=== PATIENT | male | born 1955 | race Two or more races ===

== ENCOUNTER → 2016-11-05 | Outpatient (REF) | payer MEDICARE | LOC: M SMT 13:03 | PROVIDERS: ATTEND Nurse Practitioner Women's Health | DX: R97.20 Elevated prostate specific antigen [PSA] (principal); Z79.899 Other long term (current) drug therapy | CPT/HCPCS: 81001; 87086; G0463 ==

== ENCOUNTER → 2017-06-08 | Outpatient (CLI) | payer MEDICARE, OTHER | LOC: M WUC 11:07 | DX: M19.011 Primary osteoarthritis, right shoulder (principal); M75.31 Calcific tendinitis of right shoulder | CPT/HCPCS: 73030 ==

== ENCOUNTER → 2018-02-15 | Outpatient (REF) | payer MEDICARE ==
[2018-02-15 19:12] LABS: APPEARANCE, URINE CLEAR (CLEAR); BACTERIA, URINE AUTO NEGATIVE (NEGATIVE); BILIRUBIN, URINE AUTO NEGATIVE (NEGATIVE); BLOOD, URINE BLOOD NEGATIVE (NEGATIVE); COLOR, URINE YELLOW (YELLOW); GLUCOSE, URINE (UA) AUTO NEGATIVE (NEGATIVE); KETONE, URINE AUTO NEGATIVE (NEGATIVE); LEUKOCYTE ESTERASE, URINE AUTO NEGATIVE (NEGATIVE); MUCUS, URINE SMALL (NEGATIVE); NITRITE, URINE AUTO NEGATIVE (NEGATIVE); PROTEIN, URINE AUTO NEGATIVE (NEGATIVE); RBC, URINE AUTO 0 /HPF (0-3); SPECIFIC GRAVITY URINE AUTO 1.028 (1.002-1.035); SQUAMOUS EPITHELIAL CELL UR AU 0 /HPF (0-6); UROBILINOGEN, URINE AUTO 0.2 mg/dL (0.0-2.0); WBC, URINE AUTO 0 /HPF (0-3)
== END ==
LOC: M SMT 16:52
PROVIDERS: ATTEND Nurse Practitioner Women's Health
DX: R97.20 Elevated prostate specific antigen [PSA] (principal)
CPT/HCPCS: 81001; 87086; G0463

== ENCOUNTER → 2018-02-18 | Outpatient (REF) | payer MEDICARE ==
[2018-02-21 00:06] LABS: CODEINE, URINE Negative (Cutoff=100); CREATININE, URINE 101.4 mg/dL (20.0-300.0); HYDROCODONE CONFIRM, URINE 883 ng/mL (Cutoff=100); HYDROCODONE, URINE Positive (.); HYDROMORPHONE CONFIRM, URINE 215 ng/mL (Cutoff=100); HYDROMORPHONE, URINE Positive (.); MORPHINE, URINE Negative (Cutoff=100); OPIATES, URINE Positive ng/mL (Cutoff=300)
== END ==
LOC: M SFHCPLAZ 09:15
PROVIDERS: ATTEND Physician Assistant
DX: F11.90 Opioid use, unspecified, uncomplicated (principal)

== ENCOUNTER → 2018-04-06 | Outpatient (CLI) | payer MEDICARE ==
--- NOTE | 2018-04-06 12:40 | REP ---
Prostate sonography: History: Elevated PSA Sonographic findings: Trans rectal prostate sonography demonstrates unremarkable seminal vesicles. Prostate gland is heterogeneously enlarged with calcifications and cystic changes noted. Glandular dimensions are measured at 3.6 x 2.7 x 4.3 cm with a calculated glandular volume of 21.8 ml. There is a 0.6 cm nodule in the right side of the gland. Transrectal sonographic guidance provided to Dr. Larsen who performed trans rectal ultrasound guided needle biopsy procedure . Electronically Signed by Thad Roldan MD 04/06/2018 12:32 P
== END ==
LOC: M SMT PRO 08:37
PROVIDERS: ATTEND Urology
DX: C61 Malignant neoplasm of prostate (principal)
CPT/HCPCS: 55700; 76872; 76942; G0416

== ENCOUNTER → 2018-04-13 | Outpatient (REF) | payer MEDICARE ==
[2018-04-13 17:02] LABS: BLOOD UREA NITROGEN 13 MG/DL (7-18); CALCIUM LEVEL 8.1 MG/DL (8.8-10.2); CARBON DIOXIDE LEVEL 31 MEQ/L (21-32); CHLORIDE LEVEL 107 MEQ/L (98-107); CREATININE FOR GFR 0.98 MG/DL (0.70-1.30); GLOMERULAR FILTRATION RATE > 60.0 (>49); GLUCOSE, FASTING 93 MG/DL (70-100); POTASSIUM SERUM 4.3 MEQ/L (3.5-5.1); SODIUM LEVEL 143 MEQ/L (136-145)
== END ==
LOC: M LABNEURO 14:01
PROVIDERS: ATTEND Urology
DX: C61 Malignant neoplasm of prostate (principal)
CPT/HCPCS: 36415; 80048; G0463

== ENCOUNTER → 2018-04-19 | Outpatient (CLI) | payer MEDICARE ==
[~2018-04-19] MED LIST: ISOVUE-370 76% 100ML VIAL (Q9967) As Ordered ONE
--- NOTE | 2018-04-19 09:45 | REP ---
CT of the abdomen and pelvis with IV contrast, without bowel contrast: Comparison is 03/10/2014. Within the visualized lower lung reyes. There is calcified pleural plaque in the lateral segment of the right lower lobe. Lung reyes otherwise clear. The hepatic parenchyma is homogeneous except for a small hepatic cyst in the left lobe lateral segment of small hepatic cysts. The left lobe medial segment of the small hepatic cyst in the right lobe. These are unchanged. The gallbladder, pancreas and spleen are normal size and unremarkable. The adrenals are unremarkable. The kidneys are unremarkable. The previous right hydronephrosis is no longer present. The previous right ureteral calculus at the UPJ is no longer present. There is no perinephric stranding on the right on the left. The abdominal aorta is unremarkable. There is no retroperitoneal adenopathy. There is no mesenteric adenopathy. There is no ascites. There is no bowel distension or obstruction. There is sigmoid colon diverticulosis without diverticulitis. This is unchanged. Pelvis: There is no adenopathy or ascites. The appendix is unremarkable. The bladder is unremarkable. Prostate is mildly enlarged. There are no lytic, blastic or destructive changes in the lumbar spine, sacrum or pelvis. Impression: There is no adenopathy or ascites. There are no lytic, blastic or destructive skeletal changes. The prostate is mildly enlarged. The previous right ureteral calculus. There is right hydronephrosis have resolved. There are small hepatic cysts, unchanged. There is focal calcified pleural plaque in the lateral segment of the right lower lobe. Electronically Signed by Miguel Grullon MD 04/19/2018 09:37 A
== END ==
LOC: M RAD 08:22
PROVIDERS: ATTEND Urology
DX: C61 Malignant neoplasm of prostate (principal); K76.89 Other specified diseases of liver
CPT/HCPCS: 74177; Q9967

== ENCOUNTER → 2018-04-22 | Outpatient (CLI) | payer MEDICARE ==
--- NOTE | 2018-04-22 17:42 | REP ---
WHOLE-BODY BONE SCAN: 04/22/2018. Clinical history. Prostate carcinoma, for staging. Comparison CT abdomen and pelvis 04/19/2018, MRI lumbar 12/27/2013. Technique: The patient received 21.9 mCi technetium 99m MDP via IV. Whole body delayed images with anterior and posterior obliques in delayed fashion for the chest, pelvis with lateral head, neck, knees and feet. Findings: There is symmetric increased tracer uptake in the AC joint, glenohumeral joints at the hips, knees and ankles consistent with degenerative disc change. SI joints also show mild symmetric uptake. I see no abnormal uptake in the vertebral bodies. Ribs intact. Long bones show symmetric appearance without focal abnormal uptake. There is some mild symmetric increased uptake along the peripheral margin of the proximal one half of each femoral shaft and proximal metaphysis of the tibia laterally on both sides. There is also increased uptake in the left great toe and the posterior elements of the left mid cervical region. Paranasal sinus uptake is noted consistent with chronic sinus disease. There is activity in the kidneys and bladder. No abnormal spine activity in the vertebral bodies. Some increased uptake at the posterior rib articular junctions Impression: 1. Polyarthritis noted with uptake in symmetric fashion about multiple joints, their typical distribution. There is also some uptake about the great toe, paranasal sinuses, posterior left neck without other spine uptake, 2. Some mild symmetric increased uptake peripherally in the proximal lateral cortex of the femurs and proximal metaphysis laterally in the tibia may be a mild stress reaction. This is not a metastatic pattern. I do not see any compelling scintigraphic findings to suggest metastatic disease. Electronically Signed by Deshawn Love MD 04/22/2018 07:58 P
== END ==
LOC: M RAD 10:24
PROVIDERS: ATTEND Urology
DX: C61 Malignant neoplasm of prostate (principal); M15.0 Primary generalized (osteo)arthritis
CPT/HCPCS: 78306; A9503

== ENCOUNTER → 2018-05-04 | Outpatient (CLI) | payer MEDICARE ==
--- NOTE | 2018-05-04 14:44 | REP ---
TRANSRECTAL ULTRASOUND GUIDANCE FOR FIDUCIARY MARKER PLACEMENT: Transrectal ultrasound guidance was provided for Dr. Larsen who placed three fiduciary markers in the region of the prostate. Electronically Signed by Miguel Cameron MD 05/05/2018 10:56 A
== END ==
LOC: M SMT 10:16
PROVIDERS: ATTEND Urology
DX: C61 Malignant neoplasm of prostate (principal)
CPT/HCPCS: 55876; 76872; A4648

== ENCOUNTER → 2018-05-06 | Outpatient (CLI) | payer MEDICARE ==
--- NOTE | 2018-05-10 11:39 | RADONC ---
RADIATION ONCOLOGY CONSULTATION NOTE DATE: 05/06/2018 CHART NUMBER: [id number] DIAGNOSIS: Prostate cancer. STAGE: Stage II B, T2c, N0, M0, PSA 18.79, Rhett score 7 (3-4), grade group 2. ECOG PERFORMANCE STATUS: 0 CONSULTATION NOTE: Mr. Anthony is a very pleasant, 62-year-old white male with the diagnosis of what appears to be a stage II B, [id number], moderate to poorly differentiated [place] score 7 (3-4) adenocarcinoma prostate with a PSA score of 18.79, who is presenting to us today for discussion of external beam radiation therapy with IMRT/IGRT as a therapeutic option. He has already begun hormonal therapy and has had his fiducial markers placed. HISTORY OF PRESENT ILLNESS: The patient was in his usual state of health until he was found to have a PSA level of 18.79 on 12/25/2017. On 04/06/2018, the patient underwent prostatic needle biopsy and pathology revealed a Rhett score 7 (3-4) adenocarcinoma of the prostate involving both the left and right sides. The patient has discussed his options with Dr. Larsen and has decided on IMRT external beam radiation therapy. He has had his fiducial markers placed and initiated hormonal therapy. He is now presenting for discussion of the external beam portion of his treatment. PAST MEDICAL HISTORY: The patient's past medical history is positive for hypertension and arthritis. He has some acid reflux and back pain. His reflux has called him Sen's esophagus. ALLERGIES: The patient is allergic to ASPIRIN. SOCIAL HISTORY: The patient had smoked one pack of cigarettes per day for approximately 20 years. He quit in 2012. He does not abuse alcohol. FAMILY HISTORY: The patient's family history is positive for a sister with breast cancer. REVIEW OF SYSTEMS: The patient's review of systems is positive for some occasional headaches but is otherwise noncontributory. Denies nausea, vomiting, fevers, chills, night sweats, diplopia, anxiety or depression, anorexia, weight loss, visual disturbances, chest pain, urinary or bowel difficulties, bone pain, or neurological problems. PHYSICAL EXAMINATION: The patient is a well-developed, well-nourished male in no acute distress. HEENT exam is normocephalic, atraumatic. Extraocular movements are intact. There is no palpable cervical, supraclavicular, infraclavicular, axillary, or inguinal lymphadenopathy present. Lungs are clear to auscultation and percussion. Heart has a regular rate and rhythm. Abdomen is benign with no hepatosplenomegaly, masses, or tenderness. Rectal examination reveals a normal anal sphincter tone. His prostate is smooth with no evidence of nodularity. Skeletal examination reveals no tenderness to pressure or percussion of the bony skeleton. Extremities reveal no clubbing, cyanosis, or edema. Neurologic exam is grossly intact, as is the remainder of the physical examination. MEDICAL NECESSITY: IMRT/IGRT is clinically indicated for the highly conformal dose planning required. The target volume is in close proximity to critical structures, such as the rectum, bladder, small bowel, and femoral heads. The volume of interest must be covered with narrow margins to adequately protect immediately adjacent structures. The plan requires interpretation of complex testing such as CT localization. As noted above, special planning (IMRT) and localizing (IGRT) is required and essential to maximally protect sensitive normal tissue structures which cannot be accomplished using conventional 3-dimensional planning. ASSESSMENT: Clearly the patient is a candidate for external beam radiation therapy and I have so informed him. I have discussed with the patient in detail the potential benefits as well as possible acute and chronic sequelae of external beam radiation therapy. We discussed logistics of treatment planning, simulation subsequent fractionated daily radiation treatments. I have scheduled the patient for initiation of treatment planning and radiation treatments will follow. I did discuss with the patient the alternatives such as surgery. We discussed the potential benefits as well as drawbacks of each type of treatment modality. The patient clearly has already decided on external beam radiation therapy as his treatment modality of choice. cc: MD Sudeep Mock PA
== END ==
LOC: M ONCR 12:54
PROVIDERS: ATTEND Radiology Radiation Oncology
DX: C61 Malignant neoplasm of prostate (principal); Z88.6 Allergy status to analgesic agent

== ENCOUNTER → 2018-07-09 | Outpatient (RCR) | payer MEDICARE ==
[2018-06-16 09:46] LABS: HEMOGLOBIN 14.1 g/dl (13.5-17.5); LYMPH % 32.3 % (24.0-44.0); MEAN CORPUSCULAR HEMOGLOBIN 28.9 pg (27.0-33.0); MEAN CORPUSCULAR HGB CONC 32.8 g/dl (32.0-36.5); MEAN CORPUSCULAR VOLUME 88.1 fl (80.0-96.0); NEUTROPHILS # 3.2 10^3/uL (1.8-7.7); NEUTROPHILS % 56.6 % (36.0-66.0); RED BLOOD COUNT 4.88 10^6/uL (4.30-6.10); WHITE BLOOD COUNT 5.6 10^3/uL (4.0-10.0)
--- NOTE | 2018-06-16 16:18 | RADONC ---
RADIATION ONCOLOGY SIMULATION NOTE DATE: 06/16/2018 CHART NUMBER: [id number] SIMULATION NOTE: Mr. Anthony was taken to the CT scan for CT simulation of his prostate field. CT was accomplished without difficulty or discomfort. Radiation treatment planning is underway and radiation treatments will begin subsequently. An immobilization device was created and will be used throughout the course of treatment. It was created without difficulty or discomfort. I was physically present throughout the course of CT simulation.
--- NOTE | 2018-06-28 17:17 | RADONC ---
RADIATION ONCOLOGY PROGRESS NOTE DATE: 06/28/2018 CHART NUMBER: [id number] Mr. Anthony is presently a dose of 720 cGy to his prostate and is tolerating treatments quite well at this point with no complaints related to his radiation therapy. He is having no urinary or bowel difficulties. No bone pain. The patient's review of systems is noncontributory. He denies nausea, vomiting, fevers, chills, night sweats, diplopia, headaches, anxiety or depression, anorexia, weight loss, visual disturbances, chest pain, urinary or bowel difficulties, bone pain, or neurological problems. PHYSICAL EXAMINATION: The patient's skin is in good condition with no evidence of radiation change present. There is no moist or dry desquamation. The remainder of his physical exam remains unchanged. Mr. Anthony is tolerating treatments quite well and radiation will continue as scheduled.
--- NOTE | 2018-07-06 09:16 | RADONC ---
RADIATION ONCOLOGY PROGRESS NOTE DATE: 07/06/2018 CHART NUMBER: [id number] PROGRESS NOTE: Mr. Anthony is presently at a dose of 1620 cGy to his prostate and is tolerating treatments quite well at this point with no complaints related to his radiation therapy. He is having no urinary or bowel difficulties. No bone pain. REVIEW OF SYSTEMS: The patient's review of systems is noncontributory. Denies nausea, vomiting, fevers, chills, night sweats, diplopia, headaches, anxiety or depression, anorexia, weight loss, visual disturbances, chest pain, urinary or bowel difficulties, bone pain, or neurological problems. PHYSICAL EXAMINATION: The patient's skin is in good condition with no evidence of moist or dry desquamation. The remainder of his physical exam remains unchanged. Mr. Anthony is tolerating treatments quite well and radiation will continue as scheduled.
== END ==
LOC: M ONCR 06-16 09:02
PROVIDERS: ATTEND Radiology Radiation Oncology
DX: C61 Malignant neoplasm of prostate (principal)

== ENCOUNTER 2018-08-06 08:32 | Outpatient (RCR) | payer MEDICARE ==
--- NOTE | 2018-07-12 12:28 | RADONC ---
RADIATION ONCOLOGY PROGRESS NOTE DATE: 07/12/2018 CHART NUMBER: [id number] PROGRESS NOTE: Mr. Anthony is a gentleman who has a diagnosis of adenocarcinoma of the prostate and is currently receiving local regional radiotherapy for local regional control. His current dose to date is 2340 centigray of an anticipated 7920 centigray. REVIEW OF SYSTEMS: He denies any nausea, vomiting, diarrhea, dysuria, hematuria or blood per rectum. His energy level is such that he is able to maintain most of his day-to-day activities without any alteration of his lifestyle. Skin irritation is not an issue for him. In addition, he denies any diplopia, headaches, anxiety, depression, anorexia, weight loss, visual disturbances, chest pain, urinary or bowel difficulties, bone pain or neurologic problems. EXAMINATION FINDINGS: The skin within the irradiated volume shows no evidence of erythema and certainly no focal desquamation. The remainder of the physical examination remains unchanged. IMPRESSION: Tolerating therapy well. PLAN: Treatments to continue
--- NOTE | 2018-07-19 14:31 | RADONC ---
RADIATION ONCOLOGY PROGRESS NOTE DATE: 07/19/2018 CHART NUMBER: [id number] Mr. Anthony is presently at a dose of 3240 cGy to his prostate and is tolerating treatments quite well at this point with no complaints related to his radiation therapy. He is having urinary or bowel difficulties, and no bone pain. REVIEW OF SYSTEMS: The patient's review of systems is noncontributory. He denies nausea, vomiting, fevers, chills, night sweats, diplopia, headaches, anxiety or depression, anorexia, weight loss, visual disturbances, chest pain, urinary or bowel difficulties, bone pain or neurological problems. PHYSICAL EXAMINATION: The patient's skin is in good condition with no evidence of moist or dry desquamation. The remainder of his physical exam remains unchanged. Mr. Anthony is tolerating treatments quite well and radiation will continue as scheduled.
--- NOTE | 2018-07-27 07:02 | RADONC ---
RADIATION ONCOLOGY PROGRESS NOTE DATE: 07/26/2018 CHART NUMBER: [id number] Mr. Anthony is presently at a dose of 4140 cGy to his prostate and is tolerating treatments quite well at this point with no complaints related to his radiation therapy. He is having no urinary or bowel difficulties and no bone pain. The patient's review of systems is noncontributory. He denies nausea, vomiting, fevers, chills, night sweats, diplopia, headaches, anxiety or depression, anorexia, weight loss, visual disturbances, chest pain, urinary or bowel difficulties, bone pain, or neurological problems. PHYSICAL EXAMINATION: The patient's skin is in good condition with no evidence of radiation change present. There is no moist or dry desquamation. The remainder of his physical exam remains unchanged. Mr. Anthony is tolerating treatments quite well and radiation will continue as scheduled.
--- NOTE | 2018-08-03 09:32 | RADONC ---
RADIATION ONCOLOGY PROGRESS NOTE: DATE: 08/02/2018 CHART NUMBER: [id number]. Mr. Anthony with a diagnosis of adenocarcinoma of the prostate is currently receiving local regional radiotherapy and he has achieved a dose thus far of 5040 cGy of an anticipated 7920 cGy. Treatments are going well and he has no specific complaints referable to his disease or to his treatments. REVIEW OF SYSTEMS: He specifically denies any nausea, vomiting, diarrhea, dysuria, hematuria or blood per rectum. His energy level is such that he is able to maintain most of his day-to-day activities without any alteration of his lifestyle. Skin irritation is denied. The remainder of the review of systems is unchanged. PHYSICAL EXAMINATION: He is a well-developed male in no acute distress. Lymphatics: No palpable peripheral lymphadenopathy is appreciated. The remainder of the physical examination is unchanged. IMPRESSION: Tolerating therapy well currently at a dose of 5040 cGy of an anticipated 7920 cGy. PLAN: Treatments to continue.
== END 2018-08-08 ==
LOC: M ONCR 08:32
PROVIDERS: ATTEND Radiology Radiation Oncology
DX: C61 Malignant neoplasm of prostate (principal)

== ENCOUNTER 2018-08-26 08:34 | Outpatient (RCR) | payer MEDICARE ==
--- NOTE | 2018-08-09 10:11 | RADONC ---
RADIATION ONCOLOGY PROGRESS NOTE DATE OF SERVICE: 08/09/2018. CHART NUMBER: [id number] Mr. Anthony, with a diagnosis of adenocarcinoma of prostate, is currently at a dose of half 5940 cGy of an anticipated 7920 cGy. He seems to be tolerating his therapy well with no complaints. REVIEW OF SYSTEMS: He specifically denies any nausea, vomiting, diarrhea, dysuria, hematuria or blood per rectum. His energy level is such that he is able to maintain most day-to-day activities without any alteration of his lifestyle. He does not complain of any skin irritation. The remainder of the review of systems is unchanged. PHYSICAL EXAMINATION The patient is a well-nourished, well-developed male. The skin within the irradiated volume shows neither erythema nor desquamation. There is no palpable peripheral lymphadenopathy. The remainder of the physical examination is unchanged. IMPRESSION: Tolerating therapy well. PLAN: Treatments to continue. MTDD
--- NOTE | 2018-08-16 10:05 | RADONC ---
RADIATION ONCOLOGY PROGRESS NOTE DATE: 08/16/2018 CHART NUMBER: [id number] Mr. Anthony is presently at a dose of 6480 cGy to his prostate and is tolerating treatments quite well at this point with no complaints related to his radiation therapy. He is having no urinary or bowel difficulties and no bone pain. The patient's review of systems is noncontributory. He denies nausea, vomiting, fevers, chills, night sweats, diplopia, headaches, anxiety or depression, anorexia, weight loss, visual disturbances, chest pain, urinary or bowel difficulties, bone pain, or neurological problems. PHYSICAL EXAMINATION: The patient's skin is in good condition with no evidence of radiation change present. There is no moist or dry desquamation. The remainder of his physical exam remains unchanged. Mr. Anthony is tolerating treatments quite well, and radiation will continue as scheduled.
--- NOTE | 2018-08-23 14:20 | RADONC ---
RADIATION ONCOLOGY PROGRESS NOTE DATE OF SERVICE: 08/23/2018 CHART NUMBER: [id number]. PROGRESS NOTE: Mr. Anthony is presently at a dose of 7380 cGy to his prostate and is tolerating treatments quite well at this point with no complaints related to his radiation therapy. He is having no significant urinary or bowel difficulties. No bone pain. REVIEW OF SYSTEMS: The patient's review of systems is noncontributory. He denies nausea, vomiting, fevers, chills, night sweats, diplopia, headaches, anxiety or depression, anorexia, weight loss, visual disturbances, chest pain, urinary or bowel difficulties, bone pain, or neurological problems. PHYSICAL EXAMINATION: The patient's skin is in good condition with no evidence of moist or dry desquamation. The remainder of his physical exam remains unchanged. Mr. Anthony is tolerating treatments quite well, and radiation will continue as scheduled.
--- NOTE | 2018-08-30 09:15 | RADONC ---
RADIATION ONCOLOGY TREATMENT SUMMARY DATE: 08/26/2018 CHART #: [id number] DIAGNOSIS: Prostate cancer. STAGE: II B, [id number], PSA 18.79, [place] score 7 (3-4) grade group II. ECOG PERFORMANCE STATUS: 0. TREATMENT SUMMARY: Mr. Anthony is a very pleasant 63-year-old white male with the diagnosis of what appears to be a stage II B, [id number], moderate to poorly differentiated [place] score 7 (3-4) adenocarcinoma of the prostate with a PSA score of 18.79 who presented to us for consideration of definitive external beam radiation therapy with IMRT/IGRT. We treated the prostate to a total dose of 7920 cGy delivered in 44 fractions of 180 cGy each over 64 elapsed days from 06/23/2018 through 08/26/2018. The patient's prostate was treated on the linear accelerator utilizing a 6 MV photon beam via IMRT/IGRT. The prostate and seminal vesicles were initially treated to a dose of 5400 cGy and we subsequently coned down to the prostate itself to deliver an additional 2520 cGy, once again bringing it to a total dose of 7920 cGy. Mr. Anthony tolerated his treatments quite well with no significant difficulties related to his radiation therapy. The patient is scheduled see me again in 1 month for further followup. He will also continue to be followed by his other physicians as well. Thank you for allowing us to participate in the care of this very pleasant gentleman. If I could be of any further assistance, please feel free to contact me at anytime. As always warm regards. cc: MD Sudeep Mock PA
== END 2018-09-08 ==
LOC: M ONCR 08:34
PROVIDERS: ATTEND Radiology Radiation Oncology
DX: C61 Malignant neoplasm of prostate (principal)

== ENCOUNTER → 2018-09-27 | Outpatient (REF) | payer MEDICARE | LOC: M LAB REF 10:14 | PROVIDERS: ATTEND Radiology Radiation Oncology | DX: C61 Malignant neoplasm of prostate (principal) ==

== ENCOUNTER → 2018-12-21 | Outpatient (REF) | payer MEDICARE, OTHER | LOC: M LABNEURO 10:01 | PROVIDERS: ATTEND Urology | DX: C61 Malignant neoplasm of prostate (principal) ==

== ENCOUNTER → 2021-07-19 | Outpatient (REF) | payer OTHER | LOC: M SFHCADAM 16:50 | PROVIDERS: ATTEND Physician Assistant | DX: F11.90 Opioid use, unspecified, uncomplicated (principal) ==